=== PATIENT | female | born 1965 | race Caucasian/White ===

== ENCOUNTER 2022-09-06 12:45 | Outpatient (CLI) | payer BC, SELFPAY | END 2022-09-06 12:46 | disposition home or self-care (01) | LOC: ANHBWCAUD 12:46 | PROVIDERS: Visit Provider Otolaryngology | DX: H81.4 Vertigo of central origin (principal); H90.41 Sensorineural hearing loss, unilateral, right ear, with unrestricted hearing on the contralateral side | CPT/HCPCS: 92557; 92567 ==